=== PATIENT | male | born 1995 ===

== ENCOUNTER 2021-10-04 13:34 | Emergency (ER) | payer OTHER, SELFPAY ==
[2021-10-04 14:03] VITALS: BP 121/54; PULSE 61; RESP 18; TEMP 36.7; O2SAT 97; BMI 25.0
--- NOTE | 2021-10-04 17:07 | ED_ITS ---
HPI - Back Pain/Injury General Chief Complaint: Back Pain/Injury Stated Complaint: back pain Time Seen by Provider: 10/04/21 16:25 Source: patient Mode of arrival: ambulatory Limitations: no limitations History of Present Illness HPI Narrative: 26-year-old male healthy presents to ED for low back pain after falling 5 days ago. Patient states he slipped on ice and fell onto his back. Patient was seen at [facility] and had normal x-rays but complained of still having pain. Patient denies hitting head at that time or having any loss of consciousness. Patient states no chest pain, shortness of breath, abdominal eliel n, urinary/bowel incontinence, rectal bleeding, vomiting blood, headache, dizziness, dysuria, hematuria, or any other concerning symptoms. Related Data Previous Rx's Medication Instructions Recorded cyclobenzaprine 10 mg tablet 10 mg PO TID PRN #18 tab 10/04/21 ketorolac 10 mg tablet 10 mg PO Q6H PRN 5 Days #20 tab 10/04/21 prednisone 20 mg tablet 40 mg PO DAILY 5 Days #10 tab 10/04/21 Allergies Allergy/AdvReac Type Severity Reaction Status Date / Time No Known Allergies Allergy Verified 10/04/21 14:06 Review of Systems Review of Systems: Back pain Yes all other systems are reviewed and are negative FOR[facility]LY [facility] Past Medical History Medical History (Updated 10/04/21 @ 17:16 by JERSON Lakhani) No known health problems Social History Social History Advance Directives: No Advance Directives Information Provided: No Physical Exam Vital Signs: Vital Signs: Last Vital Signs Temp 98.0 F 10/04/21 14:03 Pulse 61 10/04/21 14:03 Resp 18 10/04/21 14:03 BP 121/54 L 10/04/21 14:03 Pulse Ox 97 10/04/21 14:03 BMI result Body Mass Index 25.0 Const: General: cooperative, healthy appearing, comfortable, no acute distress, well developed, alert, awake and Physically active Orientation/consciousness: patient oriented x3 HENMT: Head: Yes normal to inspection, Yes No palpable skull fracture present, Yes normocephalic, Yes atraumatic and No abrasion Eyes: General: appearance normal, both eyes and all related structures Neck: Neck: Yes normal visual inspection, Yes full ROM, Yes no lymph adenopathy, Yes no meningeal signs, Yes trachea midline, Yes supple, No anterior neck swelling and No tender Chest: Chest palpation & inspection: normal inspection of the chest and normal palpation of entire chest wall Resp: Effort & Inspection: normal respiratory effort and able to speak in complete sentences Auscultation: clear to auscultation bilaterally Cardio: Jugular venous distension: no JVD Heart sounds: S1 normal heart sound present and S2 normal heart sound present GI: Inspection: Yes normal to inspection and No abdominal wall ecchymosis Palpation (GI): Soft to palpation, not firm, nontender, no guarding and not rigid : General: No CVA tenderness and Yes no CVA tenderness Back/Spine/Pelvis: Back: no CVA tenderness, No CVA tenderness and back tenderness (Lumbar spine tenderness) Skin: General skin exam: no rashes or lesions noted and elasticity normal Neuro: General: patient oriented x3, gait normal, no meningeal signs and CN's II-XI intact bilaterally Cranial nerves: Yes CN's II-XII intact bilaterally Extrem: General: Yes normal to inspection and Yes full ROM Psych: Appearance: grossly normal, well kempt and not disheveled Course Course Course Narrative: Patient is stress. Patient vital signs stable. No indication for repeat imaging Reevaluation(s) Reevaluation #1: Patient's improved with Toradol. Will discharge with pain med, muscle relaxer, and steroids Time: 17:14 MDM - Back Pain/Injury MDM Narrative Medical decision making narrative: Back pain Discharge Plan Discharge Clinical Impression: Back pain, Contusion Patient Disposition: Home, Self-Care Instructions: Acute Low Back Pain (ED), Contusion in Adults (ED) Additional Instructions: Please follow-up with your primary care provider if pain does not improve for fu rther imaging such as MRI if indicated. Return to the ED immediately for any urinary/bowel incontinence, rectal bleeding, vomiting blood, blood in urine, chest pain, shortness of breath, abdominal pain, headache, dizziness, fever, chills, or any other concerning symptoms. Do not take any ibuprofen/Motrin, naproxen/Aleve, or any other NSAIDs while taking Toradol ( ketorolac). Prescriptions: New prednisone 20 mg tablet 40 mg PO DAILY 5 Days Qty: 10 RF: 0 cyclobenzaprine 10 mg tablet 10 mg PO TID PRN (Reason: muscle spasm) Qty: 18 RF: 0 ketorolac 10 mg tablet 10 mg PO Q6H PRN (Reason: pain) 5 Days Qty: 20 RF: 0 Stand Alone Forms: Work/School Release Interventions: ED Discharge Assessment Last Done: 10/04/21 17:34 Discharge Date/Time: 10/04/21 17:35 Print Language: German
[2021-10-04] MEDS: Ketorolac Tromethamine 30 MG/ML VIAL IM (17:13)
== END 2021-10-04 17:35 | disposition home or self-care (01) ==
PROVIDERS: Emergency Provider Emergency Medicine
DX: S30.0XXA Contusion of lower back and pelvis, initial encounter (principal); W00.0XXA Fall on same level due to ice and snow, initial encounter; Y93.9 Activity, unspecified; Y92.480 Sidewalk as the place of occurrence of the external cause; Y99.9 Unspecified external cause status
CPT/HCPCS: 96372; 99283; 99284; J1885